=== PATIENT | male | born 1970 | race Caucasian/White ===

== ENCOUNTER 2018-07-28 05:32 | Outpatient (CLI) | payer BC, MEDICARE ==
[~2018-07-28] VITALS: Ht 182.9 cm; Wt 90.7 kg
[2018-07-28] MEDS ORDERED: CLON0.2T PO (11:20)
[2018-07-28] MEDS ORDERED: GABA-488 PO (11:20)
[2018-07-28] MEDS ORDERED: RANI150T46 PO (11:20)
[2018-07-28] MEDS ORDERED: PRAV20TA3 PO (11:20)
[2018-07-28] MEDS ORDERED: FLUT1BLS IH (11:20)
[2018-07-28] MEDS ORDERED: PIND10TA PO (11:20)
[2018-07-28] MEDS ORDERED: NF-LAMO200 PO (11:20)
[2018-07-28] MEDS ORDERED: RT-ALBUINH IH (11:20)
[2018-07-28] MEDS ORDERED: CHOL500050 PO (11:20)
[2018-07-28] MEDS ORDERED: TEMA30CA6 PO (11:20)
[2018-07-28] MEDS ORDERED: TAMS0.4C98 PO (11:20)
[2018-07-28] MEDS ORDERED: CETI10TA20 PO (11:20)
[2018-07-28] MEDS ORDERED: ALPR0.5T PO (11:20)
[2018-07-28] MEDS ORDERED: CYAN100088 PO (13:49)
[2018-07-28] MEDS ORDERED: MMT17NA NSEACH (13:49)
[2018-07-28] MEDS ORDERED: ACET500C PO (13:49)
[2018-07-28] MEDS ORDERED: ASPI-586 PO (13:49)
[2018-07-28] MEDS ORDERED: MAGN64TA8 PO (13:49)
== END 2018-07-28 13:56 | disposition home or self-care (01) ==
LOC: PREOP 05:32
PROVIDERS: ATTEND Orthopaedic Surgery
DX: Z01.818 Encounter for other preprocedural examination (principal)

== ENCOUNTER 2018-08-01 09:29 | Day surgery (SDC) | payer BC, MEDICARE ==
[~2018-08-01] VITALS: Ht 182.9 cm; Wt 90.7 kg
[~2018-08-01 09:29] MED LIST: ACET500C PO; ALPR0.5T PO; ASPI-586 PO; CETI10TA20 PO; CHOL500050 PO; CLON0.2T PO; CYAN100088 PO; FLUT1BLS IH; GABA-488 PO; MAGN64TA8 PO; MMT17NA NSEACH; NF-LAMO200 PO; PIND10TA PO; PRAV20TA3 PO; RANI150T46 PO; RT-ALBUINH IH; TAMS0.4C98 PO; TEMA30CA6 PO
[2018-08-01 09:38] VITALS: BP 123/80
[2018-08-01] MEDS ORDERED: BACITRACIN 100,000 UNIT/NS 1000 ML POUR BOTTLE IR ONE ×2 (09:45)
[2018-08-01] MEDS ORDERED: BUPIVACAINE 0.25% 30 ML (SENSORCAINE) VIAL ONE (09:55)
[2018-08-01] MEDS ORDERED: CLINDAMYCIN 600 MG/50 ML IVPB 50 ML IV ONE (10:00)
[2018-08-01] MEDS ORDERED: VANCOMYCIN 1000 MG/VIAL ONE (10:08)
[2018-08-01] MEDS ORDERED: BUP/EPI 0.5% 1:200,000 (SENSORCAINE) 30 ML VIAL ONE (10:11)
[2018-08-01] MEDS: LACTATED RINGERS 1,000 ML IV PRN ×3 (10:25→13:01)
[2018-08-01] MEDS ORDERED: MIDAZOLAM 2 MG/2 ML (VERSED) VIAL ONE (10:50)
[2018-08-01] MEDS ORDERED: fentaNYL INJECTION 100 MCG/2 ML AMP ONE (10:50)
[2018-08-01] MEDS ORDERED: NEOSTIGMINE 1 MG/ML 5 ML SYRINGE ONE ×2 (11:46→11:58)
[2018-08-01] MEDS ORDERED: GLYCOPYRROLATE 0.2 MG/ML (ROBINUL) 2 ML VIAL ONE ×2 (11:46→11:58)
[2018-08-01] MEDS ORDERED: LIDOCAINE PF 2% 5 ML (XYLOCAINE) VIAL ONE (11:46)
[2018-08-01] MEDS ORDERED: DEXAMETHASONE 10 MG/ML (DECADRON) 1 ML VIAL ONE (11:46)
[2018-08-01] MEDS ORDERED: ONDANSETRON 4 MG/2 ML (SDV) Z0FRAN ONE (11:46)
[2018-08-01] MEDS ORDERED: ROCURONIUM 10 MG/ML 5 ML SYRINGE IV ONE (11:46)
[2018-08-01] MEDS ORDERED: proPOfol 200 MG/20 ML (DIPRIVAN) VIAL IV ONE ×3 (11:46→11:49)
[2018-08-01] MEDS ORDERED: SEVOFLURANE (ULTANE) 15 ML INHAL SOLN ONE ×2 (11:49→12:37)
[2018-08-01] MEDS ORDERED: OXYC1TAB87 PO (12:52)
--- NOTE | 2018-08-01 12:54 | Discharge Inst-Simple/Standard ---
Discharge Inst-Standard Discharge Medications New, Converted or Re-Newed RX: RX on Chart Patient Instructions/Follow Up Plan of Care/Instructions/FU: follow up in clinic in 2 weeks dont bend lift twist push pull or reach 5lb weight restriction keep incision covered clean and dry Activity as Tolerated: No Discharge Diet: Regular Diet Return to [facility] For: fever chills shortness of breath chest pain new onset weakness or numbness JOANNA CORONADO Aug 01, 2018 12:54
[2018-08-01] MEDS ORDERED: fentaNYL INJECTION 100 MCG/2 ML AMP IVP ONE (13:15)
[2018-08-01] MEDS ORDERED: morphine INJ 10 MG/ML 1ML (SYR OR VIAL) IVP ONE (13:15)
[2018-08-01] MEDS ORDERED: ONDANSETRON 4 MG/2 ML (SDV) Z0FRAN IVP PRN (13:15)
--- NOTE | 2018-08-01 13:15 | Anesthesia-General Post-Op ---
General Patient Condition Mental Status/LOC: Same as Preop Cardiovascular: Satisfactory Nausea/Vomiting: Absent Respiratory: Satisfactory Pain: Controlled Complications: Absent Post Op Complications Complications None Follow Up Care/Instructions Patient Instructions None needed. Anesthesia/Patient Condition Patient Condition Patient is doing well, no complaints, stable vital signs, no apparent adverse anesthesia problems. No complications reported per nursing. TRENT LOMAX CRNA Aug 01, 2018 13:15
[2018-08-01 14:00] VITALS: BP 126/83
[2018-08-01] MEDS ORDERED: oxyCODONE/APAP 5/325MG (PERCOCET 5) TABLET PO PRN (14:15)
[2018-08-01] MEDS ORDERED: oxyCODONE/APAP 5/325MG (PERCOCET 5) TABLET ONE (14:19)
--- NOTE | 2018-08-01 14:25 | NUR ---
PERCOCET 5/325 MG, ONE TAB, GIVEN PO FOR C/O LOW BACK PAIN RATED 8.
[2018-08-01 14:30] VITALS: BP 118/79
--- NOTE | 2018-08-01 15:00 | NUR ---
REPORTS BACK PAIN EASING, NOW RATED 4.
[2018-08-01 15:15] VITALS: BP 112/84
[2018-08-01 15:30] VITALS: BP 112/84
--- NOTE | 2018-08-01 15:30 | NUR ---
STATES HE IS READY FOR DISMISSAL. PAIN RATED 3-4. DSGS REMAIN D/I TO MID AND LOW BACK SURGICAL SITES.
--- NOTE | 2018-08-01 19:59 | Diagnostic Imaging Report ---
INDICATION: Spinal cord stimulator placement. COMPARISON: None Total fluoroscopy time: 14.3 seconds Total number of fluoroscopic images saved: 1 FINDINGS: Single intraoperative image intensifier view of the thoracic spine was obtained during placement of spinal cord stimulator. Image provided shows spinal cord stimulator lead projecting over the thoracic spine. Surgical soft tissue retractors are also noted. Exact level of placement is indeterminate given coned down nature of the view. Please note, interpreting radiologist was not present during the procedure. IMPRESSION: 1. Fluoroscopic guidance provided during thoracic spinal cord stimulator placement as described above. Dictated by: Dictated on workstation # [id number]
--- NOTE | 2018-08-02 12:11 | OPERATIVE REPORT ---
DATE OF SERVICE: 08/01/2018 SURGEON: Apolinar Mercado DO. HYDROMETALLURGICAL ENGINEER: SURESH Snyder. This is a medically necessary procedure. Assistance was necessary for retraction of vital neurovascular structures. Without an technology assistant, the procedure would not be possible. PREOPERATIVE DIAGNOSES: 1. Neuropathic pain syndrome. 2. Chronic pain syndrome. 3. Lumbar radiculopathy. POSTOPERATIVE DIAGNOSES: 1. Neuropathic pain syndrome. 2. Chronic pain syndrome. 3. Lumbar radiculopathy. PROCEDURE PERFORMED: 1. Placement of thoracic spinal cord stimulator paddle lead via thoracic laminotomy. 2. Placement of pulse generator. 3. Complex programming. COMPLICATIONS: None. DRAINS PLACED: None. ESTIMATED BLOOD LOSS: See Anesthesia records. ANESTHESIA: General endotracheal tube anesthesia with local anesthetic. SPECIMEN SENT: None. HISTORY OF PRESENT ILLNESS: The patient is a very pleasant 47-year-old gentleman who presented to me with severe chronic pain syndrome. He had radiating nerve pain down his bilateral lower extremities. He did have significant pain relief after a percutaneous trial by a pain physician. He wished to proceed with operative intervention for placement of a permanent stimulator. DESCRIPTION OF PROCEDURE: The patient was identified by name on wrist band in the preoperative holding area. His operative site was signed, consent was signed. SCDs were placed. Neuromonitoring was hooked up. Antibiotics were started. He was taken to the operating theater and placed under general endotracheal tube anesthesia and then transferred to the operating room table in the prone position. He was prepped and draped in the usual sterile fashion. Formal timeout was conducted. At this point, [facility] x-ray was brought in and I marked out my pedicles. At this point, I infiltrated the skin and soft tissue with 0.5% Marcaine with epinephrine. I made a midline thoracic incision. I proceeded with a bilateral subperiosteal paraspinal muscular approach exposing the posterior elements of interest in the thoracic spine. I used a Leksell rongeur followed by Kerrison rongeurs and a high speed bur to perform a laminotomy at the T9-T10 interspace. I gained access to the epidural space. I then passed the paddle lead into the midline position over the target vertebra. I performed complex programming at this point, communicating with the [employer] rep and the neuromonitoring techs to ensure we had equal left and right lower extremity stimulation with the lead in its current location which we did. I therefore anchored the lead into the thoracic fascia. I made an incision over the beltline on the left side of the flank. I proceeded with an approach in the subcutaneous tissue to make a pocket for the pulse generator. I used to tunneler to tunnel the leads from the thoracic wound to the flank incision. I have looked up a pulse generator and finally tightened it. I buried it within the pocket. I irrigated both wounds thoroughly, maintained hemostasis and I closed it in a layered fashion utilizing #0 Vicryl followed by 2-0 Vicryl followed by running 2-0 subcuticular stitch. We applied dressings and placed the patient in the supine position in the PACU where he awoke without incident. He tolerated the procedure well. PLAN: At this time is to discharge the patient today. He is to keep his wound clean and dry and change dressings as needed. He knows to avoid any bending, twisting, pushing, pulling and see me in 2 weeks. Job ID: [id number] DocumentID: [id number] Dictated Date: 08/02/2018 07:33:22 Digital Project Coordinator Date: 08/02/2018 12:11:41 Dictated By: APOLINAR MERCADO DO
== END 2018-08-01 15:30 | disposition home or self-care (01) ==
LOC: SDC 09:29
PROVIDERS: ATTEND Orthopaedic Surgery
DX: M54.16 Radiculopathy, lumbar region (principal); G89.4 Chronic pain syndrome; Z11.2 Encounter for screening for other bacterial diseases; I10 Essential (primary) hypertension; J45.909 Unspecified asthma, uncomplicated; G47.33 Obstructive sleep apnea (adult) (pediatric); Z87.891 Personal history of nicotine dependence; Z95.1 Presence of aortocoronary bypass graft; Z79.82 Long term (current) use of aspirin; Z79.899 Other long term (current) drug therapy
CPT/HCPCS: 87081